=== PATIENT | female | born 1955 | race Caucasian/White ===

== ENCOUNTER 2019-10-03 11:12 | Outpatient (CLI) | payer BC, SELFPAY ==
--- NOTE | 2019-10-03 11:14 | MM_ITS ---
WS: [id number] BILATERAL DIGITAL SCREENING MAMMOGRAM WITH CAD CLINICAL INFORMATION: SCREENING HISTORY: Screening mammogram. No current complaints. COMPARISON: None. TECHNIQUE: Bilateral CC and MLO views. FINDINGS: Fatty-replaced breasts bilaterally. No suspicious focal mass, asymmetry, calcifications, or sas architect ural distortion. No evidence of malignancy. MM/[id number] IMPRESSION: BI-RADS: 1-Negative FOLLOW UP: 1 Year Follow-up Recommend return to annual screening mammography.
== END 2019-10-03 11:13 | disposition home or self-care (01) ==
LOC: RADSHAW 11:12
PROVIDERS: PCP Electrodiagnostic Medicine; Visit Provider Electrodiagnostic Medicine
DX: Z12.31 Encounter for screening mammogram for malignant neoplasm of breast (principal)
CPT/HCPCS: 77067

== ENCOUNTER → 2021-11-20 10:56 | Outpatient (BNVA) | payer MEDICARE, OTHER, SELFPAY | PROVIDERS: PCP Electrodiagnostic Medicine; Visit Provider Registered Nurse Neonatal Intensive Care | DX: Z20.822 Contact with and (suspected) exposure to COVID-19 (principal) | CPT/HCPCS: 87635 ==

== ENCOUNTER 2021-12-18 10:01 | Emergency (ER) | payer MEDICARE, OTHER, SELFPAY ==
[2021-12-18 10:14] VITALS: BP 128/88; PULSE 98; RESP 18; TEMP 37.2; O2SAT 97; BMI 31.1
--- NOTE | 2021-12-18 10:27 | ED_ITS ---
Documented by User: JOEY Stout 12/18/21 12:37 HPI - GI Bleed General: Chief complaint: GI Bleed Stated complaint: thinks has colitis Time Seen by Provider: 12/18/21 10:17 History of Present Illness: Patient presents with an episode of having some a bdominal cramping having some bloody mucus mixed in her stool last night. She said is actually improved this morning. Patient says she does not feel bad. Patient has a history of this happening twice over the last 30 years. Most recent was about 4 to 5 years ago. Patient denies any fever, vomiting, nausea are recent problems with hemorrhoids are other significant health problems. Patient does see a specialist for her liver on occasional basis. Dr. Adan's her primary care provider. Patient says she is feeling much better not having cramping presently and does not have any active bleeding. Associated symptoms: Denies abdominal pain, chills, fever(s), headache(s), nausea, rash or vomiting Review of Systems Const: Denies: fever(s), chills or body aches Eyes: Denies: eye discomfort ENMT: Denies: throat pain Card: Denies: chest pain Resp: Denies: dyspnea GI: Reports: hematochezia, mucus in stool (Patient states she had an episode of cramping this morning and had mucousy ) and other (Patient that she has a history of this happening twice. Never been on medi); Denies: abdominal pain, nausea or vomiting Skin/Breast: Denies: rash Neuro: Denies: headache(s) Psych: Denies: depression or suicidal ideation [facility] ED PFSH: Social History Smoking and tobacco status: never smoked Physical Exam Const: COMMON NORMALS: no acute distress, patient oriented x3 and alert HENMT: COMMON NORMALS: normocephalic and external ears normal HEAD & SCALP: normocephalic EXTERNAL EAR: Yes external ears normal Eye: COMMON NORMALS: EOMs intact bilaterally Neck/C-Spine: COMMON NORMALS: no JVD Resp: COMMON NORMALS: normal respiratory effort and No use of accessory muscles Cardio: COMMON NORMALS: no JVD GI: INSPECTION: Yes normal to inspection Extremity: COMMON NORMALS: normal to inspection and full ROM Neuro: COMMON NORMALS: patient oriented x3 SENSORIUM/ORIENTATION: Yes alert Psych: COMMON NORMALS: mental status grossly normal Skin: COMMON NORMALS: no rashes or lesions noted GENERAL SKIN EXAM: no rashes or lesions noted Course Vital Signs: Vital signs: Vital Signs Temperature 98.9 F 12/18/21 10:14 Pulse Rate 98 12/18/21 10:32 Respiratory Rate 18 12/18/21 10:32 Blood Pressure 128/88 12/18/21 10:32 Pulse Oximetry 97 12/18/21 10:32 MDM - GI Bleed Medical Decision Making Patient most likely colitis. Has a history x2 of having a colitis attack. Patient one episode during the morning hours where she had cramping he had some mucus and blood in her stool. Vital signs are stable denies any other present problems and is feeling fine and she said that no blood in her stool this morning. Denies any other health problems besides as noted. Discharge Plan Discharge Patient Disposition: Home Clinical Impression: Colitis Condition: Stable Prescriptions: New sulfasalazine 500 mg tablet 0.5 g PO TID Qty: 21 0RF Rx Instructions: give with food (meal/snack) metronidazole 500 mg tablet 500 mg PO BID 7 Days Qty: 14 0RF No Action losartan 50 mg tablet 50 mg PO DAILY 0RF Discharge Orders: Discharge ED (Routine); Ordered 12/18/21 Ordered By: Ashu Villareal Referrals: Reid Adan DO [Primary Care Provider] - Discharge Diet: Usual diet Discharge Activity: Increase activity as tolerated Patient Instructions: Colitis (ED) Activity Restrictions/Additional Instructions: Follow-up with medical provider as directed. Take medications as prescribed. Return to the ER or your medical provider if condition worsens. Please read and understand discharge instructions. If any questions ask please. Coding Level of Care Code ED Trapeze Performer for Chg Fwd Exam Comprehensive Documented by User: Hector Eduardo DO 12/18/21 16:25 HPI - GI Bleed General: Chief complaint: GI Bleed Stated complaint: thinks has colitis Time Seen by Provider: 12/18/21 10:17 [facility] ED PFSH: Social History Smoking and tobacco status: never smoked Course Consultations: Consultation #1: This chart is signed as part of the emergency department policy at the facility. I was one of the attending physicians present in the emergency department when this patient was seen by the midlevel clinician. This case was not reviewed or discussed with me and I did not independently see or evaluate this patient. Vital Signs: Vital signs: Vital Signs Temperature 98.9 F 12/18/21 10:14 Pulse Rate 98 12/18/21 10:32 Respiratory Rate 18 12/18/21 10:32 Blood Pressure 128/88 12/18/21 10:32 Pulse Oximetry 97 12/18/21 10:32 Discharge Plan Discharge Patient Disposition: Home Clinical Impression: Colitis Condition: Stable Prescriptions: New sulfasalazine 500 mg tablet 0.5 g PO TID Qty: 21 0RF Rx Instructions: give with food (meal/snack) metronidazole 500 mg tablet 500 mg PO BID 7 Days Qty: 14 0RF No Action losartan 50 mg tablet 50 mg PO DAILY 0RF Discharge Orders: Discharge ED (Routine); Ordered 12/18/21 Ordered By: Ashu Villareal Referrals: Reid Adan DO [Primary Care Provider] - Discharge Diet: Usual diet Discharge Activity: Increase activity as tolerated Patient Instructions: Colitis (ED) Activity Restrictions/Additional Instructions: Follow-up with medical provider as directed. Take medications as prescribed. Return to the ER or your medical provider if condition worsens. Please read and understand discharge instructions. If any questions ask please. Coding Level of Care Code ED Trapeze Performer for Chg Fwd Exam Comprehensive
[2021-12-18 10:32] VITALS: BP 128/88; PULSE 98; RESP 18; O2SAT 97
== END 2021-12-18 10:33 | disposition home or self-care (01) ==
PROVIDERS: Emergency Provider Nurse Practitioner Family; PCP Electrodiagnostic Medicine
DX: K52.9 Noninfective gastroenteritis and colitis, unspecified (principal)
CPT/HCPCS: 99281

== ENCOUNTER 2021-12-19 14:09 | Emergency (ER) | payer MEDICARE, OTHER, SELFPAY ==
[2021-12-19 14:38] VITALS: BP 154/84; PULSE 86; RESP 20; TEMP 37.1; O2SAT 97; BMI 31.1
--- NOTE | 2021-12-19 14:59 | ED_ITS ---
Documented by User: JOEY Stout 12/19/21 16:42 HPI - GI Bleed General: Chief complaint: GI Bleed Stated complaint: Colitis, inst getting better Time Seen by Provider: 12/19/21 14:53 History of Present Illness: Patient states she has some pretty bad abdominal cramping last night that has improved now. Patient said her bleeding has pretty much completely stopped after starting medication yesterday. She feels much better but she said the cramping and headache she had she has reaction to medication easily and she felt that was going on. Patient denies any fever chills and denies any blood in her stool. Patient says she feels better now. Patient wanted to discussed her medications. Associated symptoms: Reports nausea and vomiting (Vomited x1 today.); Denies abdominal pain, chills, fever(s), headache(s) or rash Review of Systems Const: Denies: fever(s), chills or body aches Eyes: Denies: eye discomfort ENMT: Denies: throat pain Card: Denies: chest pain Resp: Denies: dyspnea GI: Reports: nausea, vomiting (Vomited x1 today.) and GI cramping; Denies: abdominal pain or hematochezia Skin/Breast: Denies: rash Neuro: Denies: headache(s) Psych: Denies: depression or suicidal ideation [facility] ED PFSH: Social History Smoking and tobacco status: never smoked Physical Exam Const: COMMON NORMALS: no acute distress, patient oriented x3 and alert HENMT: COMMON NORMALS: normocephalic and external ears normal HEAD & SCALP: normocephalic EXTERNAL EAR: Yes external ears normal Eye: COMMON NORMALS: EOMs intact bilaterally Neck/C-Spine: COMMON NORMALS: no JVD Resp: COMMON NORMALS: normal respiratory effort and No use of accessory muscles Cardio: COMMON NORMALS: no JVD GI: INSPECTION: Yes normal to inspection Extremity: COMMON NORMALS: normal to inspection and full ROM Neuro: COMMON NORMALS: patient oriented x3 SENSORIUM/ORIENTATION: Yes alert Psych: COMMON NORMALS: mental status grossly normal Skin: COMMON NORMALS: no rashes or lesions noted GENERAL SKIN EXAM: no rashes or lesions noted Course Vital Signs: Vital signs: Vital Signs Temperature 98.7 F 12/19/21 14:38 Pulse Rate 86 12/19/21 14:38 Respiratory Rate 18 12/19/21 16:24 Blood Pressure 154/84 12/19/21 14:38 Pulse Oximetry 97 12/19/21 14:38 MDM - GI Bleed Medical Decision Making Patient with abdominal cramping after taking medication last night. Bleeding has stopped. Patient was given Zofran here in the ER and has felt much better. Requesting go home. Patient does not have any abdominal pain no vomiting no fever chills. Physical exam was noncontributory. I asked patient stop metronidazole does use sulfasalazine presently notify her specialist of her flareup she had can return here for worsening symptoms. Discharge Plan Discharge Patient Disposition: Home Clinical Impression: Adverse effect of drug/medicinal Condition: Stable Prescriptions: New ondansetron HCl 4 mg tablet 4 mg PO TID PRN (Reason: nausea and vomiting) 3 Days Qty: 9 0RF No Action losartan 50 mg tablet 50 mg PO DAILY 0RF sulfasalazine 500 mg tablet 0.5 g PO TID Qty: 21 0RF Rx Instructions: give with food (meal/snack) ursodiol 300 mg capsule 300 mg PO TID 0RF multivitamin Tablet 1 tab PO DAILY 0RF Discharge Orders: Discharge ED (Routine); Ordered 12/19/21 Ordered By: Ashu Villareal Referrals: Reid Adan DO [Primary Care Provider] - Discharge Diet: Advance as tolerated Discharge Activity: Increase activity as tolerated Activity Restrictions/Additional Instructions: Stop taking metronidazole. Let your specialist know that you had this flareup. Follow-up Dr. Adan. Return here for worsening symptoms. Coding Level of Care Code ED [place] for Chg Fwd Exam Comprehensive
[2021-12-19] MEDS: promethazine 25 mg/mL SDV 1 mL IM (15:20)
[2021-12-19 16:24] VITALS: RESP 18
== END 2021-12-19 16:24 | disposition home or self-care (01) ==
PROVIDERS: Emergency Provider Nurse Practitioner Family; PCP Electrodiagnostic Medicine
DX: R10.9 Unspecified abdominal pain (principal); T50.905A Adverse effect of unspecified drugs, medicaments and biological substances, initial encounter
CPT/HCPCS: 96372; 99283; J2550

== ENCOUNTER 2023-01-06 07:29 | Outpatient (CLI) | payer MEDICARE, OTHER, SELFPAY ==
--- NOTE | 2023-01-06 07:50 | MM_ITS ---
WS: [id number] Bilateral screening 3D tomosynthesis digital mammogram, 01/06/2023 Clinical Data: SCREENING Comparison: 10/03/2019 Findings: The breast parenchymal pattern shows fibroglandular tissue. No spiculated masses or clustered calcifi cations are seen. There are no secondary signs of carcinoma. There are mole markers on both breasts. MM/[place] [id number] Impression: 1. Negative bilateral mammogram unchanged. 2. Recommend annual screening mammograms. BIRADS: 1-Negative FOLLOW UP: 1 Year Follow-up The CAD car checker was used.
== END 2023-01-06 07:30 | disposition home or self-care (01) ==
PROVIDERS: PCP Electrodiagnostic Medicine; Visit Provider Electrodiagnostic Medicine
DX: Z12.31 Encounter for screening mammogram for malignant neoplasm of breast (principal)
CPT/HCPCS: 77063; 77067

== ENCOUNTER → 2023-12-12 10:17 | Outpatient (BNVA) | payer MEDICARE, OTHER, SELFPAY | PROVIDERS: PCP Electrodiagnostic Medicine; Visit Provider Dermatology | DX: D48.5 Neoplasm of uncertain behavior of skin (principal); L82.1 Other seborrheic keratosis; L81.4 Other melanin hyperpigmentation; D22.5 Melanocytic nevi of trunk; L72.0 Epidermal cyst | CPT/HCPCS: 11102; 99203 ==

== ENCOUNTER → 2024-01-15 07:48 | Outpatient (BNVA) | payer MEDICARE, OTHER, SELFPAY | PROVIDERS: PCP Electrodiagnostic Medicine; Visit Provider Dermatology | DX: C44.319 Basal cell carcinoma of skin of other parts of face (principal) | CPT/HCPCS: 14040; 17311 ==

== ENCOUNTER → 2024-06-06 14:45 | Outpatient (BNVA) | payer MEDICARE, OTHER, SELFPAY | PROVIDERS: PCP Electrodiagnostic Medicine; Visit Provider Nurse Practitioner Family | DX: L82.1 Other seborrheic keratosis (principal); L81.4 Other melanin hyperpigmentation; L65.8 Other specified nonscarring hair loss; D22.5 Melanocytic nevi of trunk; Z85.828 Personal history of other malignant neoplasm of skin | CPT/HCPCS: 99213 ==

== ENCOUNTER → 2024-12-05 10:24 | Outpatient (BNVA) | payer MEDICARE, OTHER, SELFPAY | PROVIDERS: PCP Electrodiagnostic Medicine; Visit Provider Nurse Practitioner Family | DX: L65.8 Other specified nonscarring hair loss (principal); L82.1 Other seborrheic keratosis; L81.4 Other melanin hyperpigmentation; Z08 Encounter for follow-up examination after completed treatment for malignant neoplasm; Z85.828 Personal history of other malignant neoplasm of skin | CPT/HCPCS: 99213 ==

== ENCOUNTER 2025-06-06 10:07 | Outpatient (CLI) | payer MEDICARE, OTHER, SELFPAY ==
--- NOTE | 2025-06-06 10:22 | MM_ITS ---
WS: [id number] BILATERAL SCREENING DIGITAL TOMOSYNTHESIS MAMMOGRAM WITH CAD HISTORY: SCREENING COMPARISON: 01/06/2023, 10/03/2019 Bilateral CC and MLO views with tomosynthesis and synthetic mammography submitted. Computer aided detection analyzed. Breast composition: There are scattered areas of fibroglandular density. No suspicious masses, microcalcifications or architectural distortion. Benign scattered calcifications. MM/MM scr BI tomosynthesis [id number] IMPRESSION: BI-RADS: 2 - Benign. FOLLOW UP: 1 Year Follow-up
== END 2025-06-06 10:08 | disposition home or self-care (01) ==
LOC: RAD 10:12
PROVIDERS: PCP Electrodiagnostic Medicine; Visit Provider Electrodiagnostic Medicine
DX: Z12.31 Encounter for screening mammogram for malignant neoplasm of breast (principal); R92.323 Mammographic fibroglandular density, bilateral breasts; R92.1 Mammographic calcification found on diagnostic imaging of breast
CPT/HCPCS: 77063; 77067

== ENCOUNTER → 2025-06-09 09:54 | Outpatient (BNVA) | payer MEDICARE, OTHER, SELFPAY | PROVIDERS: PCP Electrodiagnostic Medicine; Visit Provider Nurse Practitioner Family | DX: L82.1 Other seborrheic keratosis (principal); L81.4 Other melanin hyperpigmentation; L65.8 Other specified nonscarring hair loss; Z08 Encounter for follow-up examination after completed treatment for malignant neoplasm; Z85.828 Personal history of other malignant neoplasm of skin; L57.0 Actinic keratosis | CPT/HCPCS: 17000; 99213 ==